=== PATIENT | female | born 1975 | race Asian ===

== ENCOUNTER 2021-07-25 15:09 | Emergency (ER) | payer MEDICAID ==
[~2021-07-25] VITALS: Ht 154.9 cm; Wt 77.3 kg
[2021-07-25 15:21] VITALS: BP 118/84
[2021-07-25 16:14] LABS: BASOPHILS % (AUTO) 0.3 % (0-1); EOSINOPHILS # (AUTO) 0.1 X10'3 (0-0.9); EOSINOPHILS % (AUTO) 0.9 % (0-6); HEMATOCRIT 41.8 % (35.0-45.0); HEMOGLOBIN 14.4 g/dl (12.0-16.0); LYMPHOCYTES # (AUTO) 1.7 X10'3 (1.1-4.8); LYMPHOCYTES % (AUTO) 11.1 % (21-51); MEAN CORPUSCULAR HEMOGLOBIN 31.1 PG (27.0-31.0); MEAN CORPUSCULAR HGB CONC 34.4 g/dL (33.0-36.5); MEAN CORPUSCULAR VOLUME 90.4 FL (78-98); MEAN PLATELET VOLUME 7.8 FL (7.4-10.4); MONOCYTES # (AUTO) 0.9 X10'3 (0-0.9); MONOCYTES % (AUTO) 5.6 % (2-12); NEUTROPHILS # (AUTO) 12.7 X10'3 (1.8-7.7); NEUTROPHILS % (AUTO) 82.1 % (42-75); PLATELET COUNT 300 X10'3 (140-440); RED BLOOD COUNT 4.62 X10'6 (4.20-5.60); WHITE BLOOD COUNT 15.4 X10'3 (4.5-11.0)
[2021-07-25 16:30] LABS: ALANINE AMINOTRANSFERASE 30 U/L (12-78); ALBUMIN 3.6 G/DL (3.4-5.0); ALBUMIN/GLOBULIN RATIO 0.9 (1.1-1.5); ALKALINE PHOSPHATASE 56 IU/L (46-116); ANION GAP 13 (8-16); ASPARTATE AMINO TRANSFERASE 15 U/L (10-37); BILIRUBIN,TOTAL 0.5 MG/DL (0.1-1.0); BLOOD UREA NITROGEN 11 MG/DL (7-18); BUN/CREATININE RATIO 16.4 (6.6-38.0); CALCIUM 8.9 MG/DL (8.5-10.1); CHLORIDE 105 MMOL/L (99-107); CREATININE 0.67 MG/DL (0.40-0.90); GLUCOSE 122 MG/DL (70-104); LIPASE 75 U/L (73-393); POTASSIUM 3.4 MMOL/L (3.5-5.1); SODIUM 141 MMOL/L (135-145); TOTAL PROTEIN 7.8 G/DL (6.4-8.2); eGFR > 90 ML/MIN
--- NOTE | 2021-07-25 17:03 | NUR ---
Verified triage note by Nydia OCHOA, No changes needed to triage.
[2021-07-25 17:08] LABS: URINE HCG NEGATIVE (NEG)
[2021-07-25 17:11] LABS: CLARITY,URINE SLIGHTLY CLOUDY (Clear); COLOR,URINE YELLOW (Yellow); GLUCOSE, URINE NEGATIVE (Neg); KETONES,URINE NEGATIVE (Neg); LEUKOCYTE ESTERASE ,URINE NEGATIVE (Neg); NITRITES, URINE NEGATIVE (Neg); OCCULT BLOOD,URINE NEGATIVE (Neg); PROTEIN,URINE NEGATIVE (Neg); UA COLLECTION TYPE CLN CATCH MIDSTREAM; UROBILINOGEN,URINE 0.2 E.U/dL (0.2-1.0)
[2021-07-25 17:59] LABS: BACTERIA,URINE 2+ /HPF (Neg); MUCUS STRANDS MODERATE /LPF (Neg); RBC,URINE NONE SEEN /HPF (0-2); SQUAMOUS EPITHELIAL CELL,UR MANY /LPF (FEW); WBC,URINE 0-4 /HPF (0-4)
[2021-07-25] MEDS ORDERED: ONDA4TAB6 PO (18:09)
[2021-07-25] MEDS ORDERED: acetaminophen 325mg tablet PO ONE (18:10)
== END 2021-07-25 18:32 | disposition home or self-care (01) ==
LOC: ER 15:09
DX: R10.84 Generalized abdominal pain (principal); Z20.822 Contact with and (suspected) exposure to COVID-19
CPT/HCPCS: 36415; 80053; 81001; 81025; 83690; 85025; 87635; 99283; C9803